=== PATIENT | male | born 1960 | race Caucasian/White ===

== ENCOUNTER 2017-04-01 20:25 | Inpatient (IN) | payer MEDICAID, OTHER ==
[~2017-04-01] VITALS: Ht 160 cm; Wt 87.5 kg
[2017-04-01] MEDS ORDERED: FOLIC ACID 1 MG, THIAMINE HCL 100 MG, MVI, ADULT NO.1 10 ML in DEXTROSE 5% WATER 1,000 ML IV ONE ×4 (22:15)
[2017-04-01] MEDS ORDERED: ONDANSETRON HCL 4MG/2ML VIAL IV ONE (22:15)
[2017-04-01 22:52] LABS: BASOPHILS % 0.7 % (0.0-2.0); EOSINOPHILS % 0.7 % (0.0-5.0); HEMATOCRIT. 46.2 % (42.0-52.0); HEMOGLOBIN. 15.7 g/dL (14.0-18.0); LYMPHOCYTES % 17.5 % (20.0-50.0); MEAN CORPUSCULAR HEMOGLOBIN 30.9 pg (28.0-32.0); MEAN CORPUSCULAR VOLUME 91.1 fL (80.0-94.0); MEAN PLATELET VOLUME 8.7 fl (7.4-10.4); MONOCYTES % 6.4 % (2.0-8.0); NEUTROPHILS % 74.7 % (40.0-76.0); PLATELET 131 x1000/uL (130-400); RED BLOOD CELL COUNT 5.07 mill/uL (4.7-6.1); RED CELL DISTRIBUTION WIDTH 14.8 % (11.6-14.6)
[2017-04-01 22:54] LABS: CARBON DIOXIDE 29 mEq/L (21-32); CHLORIDE 98 mEq/L (98-107)
[2017-04-01 22:57] LABS: ETHANOL BLOOD 289 mg/dL
[2017-04-02] MEDS ORDERED: ONDANSETRON HCL 4MG/2ML VIAL IV ONE (00:45)
[2017-04-02 01:52] LABS: CLARITY URINE CLEAR (CLEAR); COLOR URINE DARK YELLOW (YELLOW); GLUCOSE URINE 1+ (NEGATIVE); KETONES URINE NEGATIVE (NEGATIVE); LEUKOCYTE ESTERASE URINE NEGATIVE (NEGATIVE); NITRITE URINE NEGATIVE (NEGATIVE); OCCULT BLOOD URINE NEGATIVE (NEGATIVE); PH URINE 6.5 (4.5-8.0); PROTEIN URINE 1+ (NEGATIVE); SPECIFIC GRAVITY URINE 1.021 (1.005-1.030)
[2017-04-02 02:54] LABS: *AMPHETAMINES SCREEN URINE NEGATIVE (NEGATIVE); *BARBITURATES SCREEN URINE NEGATIVE (NEGATIVE); *BENZODIAZEPINES SCREEN URINE NEGATIVE (NEGATIVE); *COCAINE SCREEN URINE NEGATIVE (NEGATIVE); CANNABINOID URINE SCREEN NEGATIVE (NEGATIVE); METHADONE URINE SCREEN NEGATIVE (NEGATIVE); OPIATES URINE SCREEN NEGATIVE (NEGATIVE); PHENCYCLIDINE URINE SCREEN NEGATIVE (NEGATIVE)
[2017-04-02 16:17] LABS: BG CARBOXYHEMOGLOBIN 1.2 % (0.5-1.5); BG DEOXYHEMOGLOBIN 5.3 % (0.0-5.0); BG FRACTION INSPIRED OXYGEN 21; BG HCO3 ACT 26.8 mmol/L (22.0-26.0); BG METHEMOGLOBIN 0.3 % (0.0-1.5); BG OXYGEN SATURATION 94.6 % (92.0-98.5); BG OXYHEMOGLOBIN 93.2 % (94.0-97.0); BG PCO2 42.7 mmHg (35.0-45.0); BG PH 7.416 (7.350-7.450); BG PO2 74.4 mmHg (75.0-100.0); BG SAMPLE SITE RIGHT RADIAL; BG TOTAL HEMOGLOBIN 15.9 g/dL (12.0-18.0); BG VENT MODE ROOM AIR
[2017-04-02 16:21] LABS: INR 1.6; PROTHROMBIN TIME 16.9 sec (9.4-11.6)
[2017-04-02 16:42] LABS: AMMONIA 40 uMol/L (<32)
[2017-04-02 16:46] LABS: HEPATITIS B SURFACE ANTIGEN NEGATIVE
[2017-04-02 17:14] LABS: HEPATITIS B CORE AB IGM NEGATIVE
[2017-04-02 17:16] LABS: HEPATITIS A AB IGM NEGATIVE (NEGATIVE)
[2017-04-02] MEDS ORDERED: SODIUM CHLORIDE 0.9% 1,000 ML IV ONE (17:28)
[2017-04-02] MEDS ORDERED: CHLORDIAZEPOXIDE 25MG CAPSULE PO ONE (17:45)
[2017-04-02 19:33] LABS: CARBON DIOXIDE 28 mEq/L (21-32); CHLORIDE 98 mEq/L (98-107)
[2017-04-03 04:00] VITALS: BP 137/82
[2017-04-03] MEDS ORDERED: ONDANSETRON HCL 4MG/2ML VIAL IV PRN (04:00)
[2017-04-03] MEDS: CHLORDIAZEPOXIDE 25MG CAPSULE PO SCH ×3 (05:47→21:51)
[2017-04-03 08:00] VITALS: BP 127/84
[2017-04-03] MEDS: THIAMINE HCL 100MG TABLET PO SCH (09:00)
[2017-04-03] MEDS: FOLIC ACID 1MG TABLET PO SCH (09:01)
[2017-04-03] MEDS: MULTIVITAMINS,THER W-MINERALS TABLET PO SCH (09:01)
[2017-04-03 10:01] LABS: BASOPHILS % 0.8 % (0.0-2.0); EOSINOPHILS % 2.5 % (0.0-5.0); HEMATOCRIT. 42.4 % (42.0-52.0); HEMOGLOBIN. 14.3 g/dL (14.0-18.0); LYMPHOCYTES % 27.5 % (20.0-50.0); MEAN CORPUSCULAR HEMOGLOBIN 30.8 pg (28.0-32.0); MEAN CORPUSCULAR VOLUME 91.4 fL (80.0-94.0); MEAN PLATELET VOLUME 9.9 fl (7.4-10.4); MONOCYTES % 5.6 % (2.0-8.0); NEUTROPHILS % 63.6 % (40.0-76.0); PLATELET 124 x1000/uL (130-400); RED BLOOD CELL COUNT 4.64 mill/uL (4.7-6.1); RED CELL DISTRIBUTION WIDTH 14.5 % (11.6-14.6)
[2017-04-03 10:25] LABS: CARBON DIOXIDE 28 mEq/L (21-32); CHLORIDE 97 mEq/L (98-107)
[2017-04-03 12:00] VITALS: BP 112/78
[2017-04-03] MEDS: LACTULOSE 20G/30ML UDC PO SCH (13:09)
[2017-04-03] MEDS: PANTOPRAZOLE SODIUM 40 MG/VIAL IV SCH ×2 (13:27→21:32)
[2017-04-03 16:00] VITALS: BP 130/78
[2017-04-03 20:00] VITALS: BP 129/77
[2017-04-04] VITALS: BP 128/82
[2017-04-04 04:00] VITALS: BP 112/68
[2017-04-04 06:50] LABS: AMMONIA 55 uMol/L (<32)
[2017-04-04 06:51] LABS: BASOPHILS % 0.6 % (0.0-2.0); EOSINOPHILS % 3.2 % (0.0-5.0); HEMATOCRIT. 39.8 % (42.0-52.0); HEMOGLOBIN. 13.4 g/dL (14.0-18.0); LYMPHOCYTES % 34.5 % (20.0-50.0); MEAN CORPUSCULAR HEMOGLOBIN 31.1 pg (28.0-32.0); MEAN CORPUSCULAR VOLUME 92.1 fL (80.0-94.0); MEAN PLATELET VOLUME 9.5 fl (7.4-10.4); MONOCYTES % 9.2 % (2.0-8.0); NEUTROPHILS % 52.5 % (40.0-76.0); PLATELET 104 x1000/uL (130-400); RED BLOOD CELL COUNT 4.32 mill/uL (4.7-6.1); RED CELL DISTRIBUTION WIDTH 14.5 % (11.6-14.6)
[2017-04-04] MEDS: CHLORDIAZEPOXIDE 25MG CAPSULE PO SCH ×2 (06:56→13:14)
[2017-04-04 07:25] LABS: CARBON DIOXIDE 30 mEq/L (21-32); CHLORIDE 99 mEq/L (98-107)
[2017-04-04 08:00] VITALS: BP 108/77
[2017-04-04] MEDS: MULTIVITAMINS,THER W-MINERALS TABLET PO SCH (08:11)
[2017-04-04] MEDS: THIAMINE HCL 100MG TABLET PO SCH (08:11)
[2017-04-04] MEDS: LACTULOSE 20G/30ML UDC PO SCH (08:11)
[2017-04-04] MEDS: FOLIC ACID 1MG TABLET PO SCH (08:11)
[2017-04-04] MEDS: PANTOPRAZOLE SODIUM 40 MG/VIAL IV SCH (08:39)
[2017-04-04] MEDS ORDERED: LACTULOSE 20G/30ML UDC PO SCH ×2 (09:05→17:00)
[2017-04-04] MEDS ORDERED: POTASSIUM CHLORIDE 20MEQ TABLET SR PO NR (11:45)
[2017-04-04 12:00] VITALS: BP 116/75
== END 2017-04-04 17:05 | disposition home or self-care (01) | DRG 775 ==
LOC: ER 20:59 → 7WST 04-02 05:40 → ENRESERV 04-02 12:58 → CANRESERV 04-02 12:58 → CANBEDREQ 04-02 17:52 → ENRESERV 04-03 02:04
PROVIDERS: ADMIT Internal Medicine; ATTEND Internal Medicine
DX: F10.129 Alcohol abuse with intoxication, unspecified (principal); D68.9 Coagulation defect, unspecified; E87.2 Acidosis; E72.20 Disorder of urea cycle metabolism, unspecified; E88.09 Other disorders of plasma-protein metabolism, not elsewhere classified; K80.20 Calculus of gallbladder without cholecystitis without obstruction; R73.9 Hyperglycemia, unspecified; F15.10 Other stimulant abuse, uncomplicated; T51.0X1A Toxic effect of ethanol, accidental (unintentional), initial encounter; K76.0 Fatty (change of) liver, not elsewhere classified; K70.9 Alcoholic liver disease, unspecified; K59.00 Constipation, unspecified; Y90.8 Blood alcohol level of 240 mg/100 ml or more; R74.0 Nonspecific elevation of levels of transaminase and lactic acid dehydrogenase [LDH]
CPT/HCPCS: 36415; 36600; 70450; 74176; 74181; 76705; 80048; 80053; 80076; 80305; 80307; 80329; 81001; 82140; 82248; 82375; 82805; 82962; 83036; 83605; 83690; 83735; 85025; 85610; 86705; 86709; 86803; 87340; 93970; 96361; 96365; 96366; 96375; 96376; 99285; C9113; G0482; J2405; J3411; J3490; J7030; J7070; A4315

== ENCOUNTER 2018-11-05 07:31 | Emergency (ER) | payer MEDICAID ==
[~2018-11-05] VITALS: Ht 165.1 cm; Wt 70.0 kg
[2018-11-05 09:24] LABS: HEMATOCRIT. 35.5 % (42.0-52.0); HEMOGLOBIN. 11.7 g/dL (14.0-18.0); MEAN CORPUSCULAR VOLUME 88.1 fL (80.0-94.0); MEAN PLATELET VOLUME 8.3 fl (7.4-10.4); PLATELET 153 x1000/uL (130-400); RED BLOOD CELL COUNT 4.03 mill/uL (4.7-6.1); RED CELL DISTRIBUTION WIDTH 16.4 % (11.6-14.6)
[2018-11-05 09:27] LABS: CHLORIDE 104 mEq/L (98-107)
[2018-11-05 09:31] LABS: ETHANOL BLOOD < 10 mg/dL
[2018-11-05 09:33] LABS: CLARITY URINE CLEAR (CLEAR); COLOR URINE YELLOW (YELLOW); KETONES URINE NEGATIVE (NEGATIVE); LEUKOCYTE ESTERASE URINE NEGATIVE (NEGATIVE); NITRITE URINE NEGATIVE (NEGATIVE); OCCULT BLOOD URINE NEGATIVE (NEGATIVE); PH URINE 8.5 (4.5-8.0); PROTEIN URINE NEGATIVE (NEGATIVE); SPECIFIC GRAVITY URINE 1.014 (1.005-1.030)
[2018-11-05 09:58] LABS: *AMPHETAMINES SCREEN URINE NEGATIVE (NEGATIVE); *BARBITURATES SCREEN URINE NEGATIVE (NEGATIVE); *COCAINE SCREEN URINE NEGATIVE (NEGATIVE); METHADONE URINE SCREEN NEGATIVE (NEGATIVE); OPIATES URINE SCREEN NEGATIVE (NEGATIVE)
[2018-11-05 09:59] LABS: CANNABINOID URINE SCREEN NEGATIVE (NEGATIVE); PHENCYCLIDINE URINE SCREEN NEGATIVE (NEGATIVE)
[2018-11-05 10:02] LABS: *BENZODIAZEPINES SCREEN URINE NEGATIVE (NEGATIVE)
[2018-11-05 10:05] LABS: PLATELET ESTIMATE NORMAL
[2018-11-05] MEDS ORDERED: IOHEXOL-300 100 ML BOTTLE ONE (11:00)
[2018-11-05 13:30] VITALS: BP 109/67
== END 2018-11-05 14:00 | disposition home or self-care (01) ==
LOC: ER 07:43
DX: K80.20 Calculus of gallbladder without cholecystitis without obstruction (principal)
CPT/HCPCS: 36415; 71045; 74177; 76705; 80053; 80305; 80320; 81003; 83690; 84484; 85025; 93005; 99284; Q9967; Z7610; G0480

== ENCOUNTER 2019-08-20 17:11 | Emergency (ER) | payer MEDICAID ==
[~2019-08-20] VITALS: Ht 154.9 cm; Wt 73.0 kg
[2019-08-20] MEDS ORDERED: KETOROLAC 30MG/ML VIAL IV STA (18:48)
[2019-08-20] MEDS ORDERED: ONDANSETRON 4MG ODT PO STA (18:48)
[2019-08-20] MEDS ORDERED: SODIUM CHLORIDE 0.9% 1,000 ML IV ONE (18:48)
[2019-08-20 19:52] LABS: BASOPHILS % 0.4 % (0.0-2.0); EOSINOPHILS % 2.7 % (0.0-5.0); HEMATOCRIT. 39.7 % (42.0-52.0); HEMOGLOBIN. 13.4 g/dL (14.0-18.0); LYMPHOCYTES % 25.3 % (20.0-50.0); MEAN CORPUSCULAR HEMOGLOBIN 31.1 pg (28.0-32.0); MEAN CORPUSCULAR VOLUME 92.3 fL (80.0-94.0); MEAN PLATELET VOLUME 8.8 fl (7.4-10.4); MONOCYTES % 7.4 % (2.0-8.0); NEUTROPHILS % 64.2 % (40.0-76.0); PLATELET 143 x1000/uL (130-400); RED CELL DISTRIBUTION WIDTH 14.5 % (11.6-14.6)
[2019-08-20 19:53] LABS: CHLORIDE 103 mEq/L (98-107)
[2019-08-20 20:08] VITALS: BP 117/78
== END 2019-08-20 21:50 | disposition home or self-care (01) ==
LOC: ER 17:11
DX: K59.00 Constipation, unspecified (principal)
CPT/HCPCS: 36415; 74021; 80053; 83690; 85025; 96361; 96374; 99284; J1885; J7030; Q0162

== ENCOUNTER 2021-06-11 12:41 | Emergency (ER) | payer MEDICAID ==
[~2021-06-11] VITALS: Ht 157.5 cm; Wt 70.0 kg
[~2021-06-11 12:41] MED LIST: FLOR PO; MIDO5TAB4 MT
[2021-06-11] MEDS ORDERED: IBUPROFEN 600MG TABLET PO ONE (13:15)
[2021-06-11] MEDS ORDERED: IBUP-2029 MT (13:44)
[2021-06-11] MEDS ORDERED: BO1 TP (13:44)
[2021-06-11 14:45] VITALS: BP 122/60
== END 2021-06-11 15:10 | disposition home or self-care (01) ==
LOC: ER 13:17
DX: S01.81XD Laceration without foreign body of other part of head, subsequent encounter (principal); R07.9 Chest pain, unspecified; Z48.02 Encounter for removal of sutures; Z79.899 Other long term (current) drug therapy; X58.XXXD Exposure to other specified factors, subsequent encounter
CPT/HCPCS: 71045; 93005; 99283

== ENCOUNTER 2022-10-15 13:26 | Emergency (ER) | payer MEDICAID ==
[~2022-10-15] VITALS: Ht 167.6 cm; Wt 85.0 kg
[~2022-10-15 13:26] MED LIST changes: +BO1 TP; +IBUP-2029 MT
[2022-10-15 13:43] VITALS: BP 105/65
[2022-10-15] MEDS ORDERED: SODIUM CHLORIDE 0.9% 1,000 ML IV ONE (14:00)
[2022-10-15 15:19] LABS: BASOPHILS % 0.5 % (0.0-2.0); EOSINOPHILS % 0.8 % (0.0-5.0); HEMATOCRIT. 39.1 % (42.0-52.0); LYMPHOCYTES % 29.2 % (20.0-50.0); MEAN CORPUSCULAR HEMOGLOBIN 30.9 pg (28.0-32.0); MEAN CORPUSCULAR VOLUME 92.8 fL (80.0-94.0); MEAN PLATELET VOLUME 8.1 fl (7.4-10.4); MONOCYTES % 6.8 % (2.0-8.0); NEUTROPHILS % 62.7 % (40.0-76.0); PLATELET 220 x1000/uL (130-400); RED BLOOD CELL COUNT 4.21 mill/uL (4.7-6.1); RED CELL DISTRIBUTION WIDTH 14.9 % (11.6-14.6)
[2022-10-15 15:27] LABS: CHLORIDE 112 mEq/L (98-107)
[2022-10-15 15:37] LABS: ETHANOL BLOOD 273 mg/dL
== END 2022-10-15 19:14 | disposition left against medical advice (07) ==
LOC: ER 13:29
DX: F10.229 Alcohol dependence with intoxication, unspecified (principal); Y90.8 Blood alcohol level of 240 mg/100 ml or more; Z79.899 Other long term (current) drug therapy
CPT/HCPCS: 36415; 80053; 80320; 85025; 99283; J7030; G0480

== ENCOUNTER 2025-02-24 15:38 | Emergency (ER) | payer OTHER ==
[~2025-02-24] VITALS: Ht 167.6 cm; Wt 75.0 kg
[~2025-02-24 15:38] MED LIST changes: -FLOR PO; +FLUD0.1T2 PO
[2025-02-24 15:55] VITALS: BP 116/65; PULSE 105; RESP 16; TEMP 36.8; O2SAT 93
== END 2025-02-24 17:31 | disposition left against medical advice (07) ==
LOC: ER 15:38
DX: M25.572 Pain in left ankle and joints of left foot (principal); Z53.21 Procedure and treatment not carried out due to patient leaving prior to being seen by health care provider